=== PATIENT | male | born 1955 | race Caucasian/White ===

== ENCOUNTER 2017-11-08 19:33 | Emergency (ER) | payer MEDICARE ==
[~2017-11-08] VITALS: Ht 177.8 cm; Wt 113.4 kg
[~2017-11-08 19:33] MED LIST: ACEDIPPM; ACIDOPHILUS; ALBU90OI6; ASPI325; ATOR20 PO; CLIN300 PO; Ceftriaxone2 G1 IV; ERGO50000 PO; FLAX; FURO80 PO; GABA600 PO; GLUC500 PO; Gabapentin600 MG PO; HYDACE10B PO; HYDR-86; HYDR1TAB94 PO; INSUASPI; INSULANI; INSULANPEN SC; INSULIN PUMP; LACT10SY PO; LAVAP17G PO; LEVFLO500 PO; LISHYD2012; LISI5 PO; Lisinopril2.5 MG; METF500; METO25ER PO; METO50 PO; MULVIT PO; NAPR500 PO; NEBI5 PO; Novolog100 UNIT/1; OXYACE5T PO; POTA10T PO; POTCHL10ER PO; PROM25 PO; ROSU10TA; RXCLIN PO; SACC250C PO; TIOT18; TYLENOL COLD M PO; [UNRECOGNIZED DRUG - OTHER]
[2017-11-08 20:13] LABS: BASOPHILS ABSOLUTE AUTO 0.03 K/mm3 (0.00-0.23); BASOPHILS PERCENT AUTO 0 % (0-2); EOSINOPHILS ABSOLUTE AUTO 0.01 K/mm3 (0.00-0.68); EOSINOPHILS PERCENT AUTO 0 % (0-6); Hematocrit 35.1 % (37.0-53.0); Hemoglobin 11.6 g/dL (13.5-17.5); IMMATURE GRAN ABSOLUTE AUTO 0.04 K/mm3 (0.00-0.10); IMMATURE GRAN PERCENT AUTO 0 % (0-1); LYMPHOCYTES ABSOLUTE AUTO 0.47 K/mm3 (0.84-5.20); LYMPHOCYTES PERCENT AUTO 4 % (21-46); MONOCYTES ABSOLUTE AUTO 1.25 K/mm3 (0.16-1.47); MONOCYTES PERCENT AUTO 10 % (4-13); Mean Corpuscular HGB 31.3 pg (26.0-34.0); Mean Corpuscular Volume 95 fL (80-100); Mean Platelet Volume 11.1 fL (9.1-12.4); NEUTROPHILS ABSOLUTE AUTO 10.53 K/mm3 (1.96-9.15); NEUTROPHILS PERCENT AUTO 86 % (41-73); Platelet Count 253 K/mm3 (150-400); RDW Coefficient Variation 12.3 % (11.7-14.2); RDW Standard Deviation 42.9 fL (35.1-46.3); Red Blood Cell Count 3.71 M/mm3 (4.30-5.90); White Blood Cell Count 12.33 K/mm3 (4.00-11.30)
[2017-11-08 20:35] LABS: Alanine Aminotransfer (ALT/SGP 27 U/L (12-78); Albumin, Blood 3.4 g/dL (3.4-5.0); Albumin/Globulin Ratio 0.8 (0.8-1.8); Alk Phos 75 U/L (50-136); Anion Gap 10 mmol/L (6-16); Aspartate Aminotrans (AST/SGOT 28 U/L (12-37); Bilirubin, Total 0.5 mg/dL (0.1-1.0); Blood Urea Nitrogen 16 mg/dL (8-24); Bun/Creatinine Ratio 13.1 (12.0-20.0); CO2, Blood 24 mmol/L (21-32); Calcium, Blood 8.5 mg/dL (8.5-10.1); Chloride, Blood 102 mmol/L (98-108); Creatinine, Blood 1.22 mg/dL (0.60-1.20); Globulin, Blood 4.3 g/dL (2.2-4.0); Glomerular Filtration Rate >60 (60-); Glucose, Blood 206 mg/dL (70-99); Potassium, Blood 3.7 mmol/L (3.5-5.5); Sodium, Blood 136 mmol/L (136-145); Total Protein, Blood 7.7 g/dL (6.4-8.2)
[2017-11-08] MEDS ORDERED: LOSARTAN POTAS100 MG PO (20:46)
[2017-11-08] MEDS ORDERED: METO25ER PO (20:46)
[2017-11-08] MEDS ORDERED: ATOR80 PO (20:46)
[2017-11-08] MEDS ORDERED: Isosorbide Mono30 MG PO (20:47)
[2017-11-08] MEDS ORDERED: SPIR25 PO (20:47)
[2017-11-08] MEDS ORDERED: POTCHL20ER PO (20:47)
[2017-11-08] MEDS ORDERED: FLONASE ALLERG9.9 ML INH (20:48)
[2017-11-08] MEDS ORDERED: PANT40 PO (20:48)
[2017-11-08] MEDS ORDERED: Multivitamin1 EAC2 PO (20:48)
[2017-11-08] MEDS ORDERED: INSU100I6 SC (20:49)
[2017-11-08] MEDS ORDERED: CLOP75 PO (20:50)
[2017-11-08] MEDS ORDERED: GABA600 PO (20:52)
[2017-11-08] MEDS ORDERED: FURO40 PO (20:53)
[2017-11-08 22:37] LABS: Influenza A Negative (NEGATIVE); Influenza B Negative (NEGATIVE)
[2017-11-09 00:04] LABS: Source, Urine Clean Catch
[2017-11-09 00:07] LABS: Bilirubin, Urine Neg (Neg); Blood, Urine 3+ (Neg); Glucose Qualitative, Urine 2+ (Neg); Ketones, Urine Neg (Neg); Leukocyte Esterase, Urine 2+ (Neg); Nitrite, Urine Neg (Neg); Protein, Urine 3+ (Neg); Specific Gravity, Urine 1.015 (1.003-1.022); Urobilinogen, Urine 2+ (Normal)
[2017-11-09 00:13] LABS: Appearance, Urine Hazy (Clear); Bacteria Many /hpf; Color, Urine Yellow (P-Yellow); Red Blood Cells, Urine Rare /hpf (0-2); Squamous Epithelial Cells Rare /hpf (Few); White Blood Cells, Urine TNTC /hpf (0-5)
[2017-11-09] MEDS ORDERED: Cipro500 MG PO (00:25)
== END 2017-11-09 00:46 | disposition home or self-care (01) ==
LOC: ER 19:33
PROVIDERS: Emergency Medicine
DX: N39.0 Urinary tract infection, site not specified (principal); Z88.5 Allergy status to narcotic agent; Z88.8 Allergy status to other drugs, medicaments and biological substances; Z79.899 Other long term (current) drug therapy; Z79.4 Long term (current) use of insulin; E11.9 Type 2 diabetes mellitus without complications; I25.2 Old myocardial infarction; Z87.891 Personal history of nicotine dependence; Z85.51 Personal history of malignant neoplasm of bladder
CPT/HCPCS: 36415; 71046; 80053; 81001; 83690; 85025; 87077; 87086; 87186; 87804; 93005; 93010; 96361; 96365; 96375; 99283; J0696; J2405; J7030

== ENCOUNTER 2017-11-27 17:46 | Emergency (ER) | payer MEDICARE ==
[~2017-11-27] VITALS: Ht 177.8 cm; Wt 112.5 kg
[~2017-11-27 17:46] MED LIST changes: +ATOR80 PO; +CLOP75 PO; +Cipro500 MG PO; +FLONASE ALLERG9.9 ML INH; +FURO40 PO; +INSU100I6 SC; +Isosorbide Mono30 MG PO; +LOSARTAN POTAS100 MG PO; +Multivitamin1 EAC2 PO; +PANT40 PO; +POTCHL20ER PO; +SPIR25 PO
[2017-11-27 18:41] LABS: Mean Corpuscular HGB Conc 33.1 g/dL (31.5-36.5); RDW Coefficient Variation 12.6 % (11.7-14.2)
[2017-11-27 18:59] LABS: Alanine Aminotransfer (ALT/SGP 22 U/L (12-78); Albumin, Blood 3.9 g/dL (3.4-5.0); Alk Phos 101 U/L (50-136); Anion Gap 12 mmol/L (6-16); Aspartate Aminotrans (AST/SGOT 11 U/L (12-37); Blood Urea Nitrogen 19 mg/dL (8-24); Bun/Creatinine Ratio 20.2 (12.0-20.0); CO2, Blood 20 mmol/L (21-32); Calcium, Blood 9.3 mg/dL (8.5-10.1); Chloride, Blood 98 mmol/L (98-108); Creatinine, Blood 0.94 mg/dL (0.60-1.20); Glomerular Filtration Rate >60 (60-); Glucose, Blood 461 mg/dL (70-99); Potassium, Blood 4.4 mmol/L (3.5-5.5); Sodium, Blood 130 mmol/L (136-145); Total Protein, Blood 7.9 g/dL (6.4-8.2)
[2017-11-27 19:19] LABS: BASOPHILS ABSOLUTE AUTO 0.05 K/mm3 (0.00-0.23); BASOPHILS PERCENT AUTO 0 % (0-2); EOSINOPHILS ABSOLUTE AUTO 0.06 K/mm3 (0.00-0.68); EOSINOPHILS PERCENT AUTO 0 % (0-6); Hematocrit 38.1 % (37.0-53.0); Hemoglobin 12.6 g/dL (13.5-17.5); IMMATURE GRAN ABSOLUTE AUTO 0.08 K/mm3 (0.00-0.10); IMMATURE GRAN PERCENT AUTO 1 % (0-1); LYMPHOCYTES PERCENT AUTO 6 % (21-46); MONOCYTES ABSOLUTE AUTO 1.47 K/mm3 (0.16-1.47); MONOCYTES PERCENT AUTO 9 % (4-13); Mean Corpuscular HGB 30.7 pg (26.0-34.0); Mean Corpuscular Volume 93 fL (80-100); Mean Platelet Volume 11.4 fL (9.1-12.4); NEUTROPHILS PERCENT AUTO 84 % (41-73); Platelet Count 292 K/mm3 (150-400); RDW Standard Deviation 43.1 fL (35.1-46.3); Red Blood Cell Count 4.11 M/mm3 (4.30-5.90); White Blood Cell Count 16.36 K/mm3 (4.00-11.30)
[2017-11-27 20:29] LABS: Source, Urine Clean Catch
[2017-11-27 20:34] LABS: Bilirubin, Urine Neg (Neg); Blood, Urine 3+ (Neg); Glucose Qualitative, Urine 4+ (Neg); Ketones, Urine 3+ (Neg); Leukocyte Esterase, Urine 1+ (Neg); Nitrite, Urine Neg (Neg); Protein, Urine 2+ (Neg); Urobilinogen, Urine NORM (Normal)
[2017-11-27 20:35] LABS: Appearance, Urine Clear (Clear); Color, Urine Yellow (P-Yellow)
[2017-11-27 20:41] LABS: Bacteria Rare /hpf; Squamous Epithelial Cells Not Seen /hpf (Few); White Blood Cells, Urine 50-100 /hpf (0-5)
[2017-11-27] MEDS ORDERED: CEPH500 PO (20:58)
[2017-11-27] MEDS ORDERED: Levaquin750 MG PO (21:05)
== END 2017-11-27 21:17 | disposition home or self-care (01) ==
LOC: ER 17:46
PROVIDERS: Emergency Medicine
DX: N39.0 Urinary tract infection, site not specified (principal); E11.9 Type 2 diabetes mellitus without complications; I25.2 Old myocardial infarction; Z88.5 Allergy status to narcotic agent; Z91.09 Other allergy status, other than to drugs and biological substances; Z88.8 Allergy status to other drugs, medicaments and biological substances; Z79.899 Other long term (current) drug therapy; Z79.4 Long term (current) use of insulin; Z87.891 Personal history of nicotine dependence; Z96.41 Presence of insulin pump (external) (internal)
CPT/HCPCS: 36415; 80053; 81001; 82947; 83605; 83690; 85025; 87040; 87077; 87086; 87186; 93005; 93010; 96365; 99283; J0696; J7030

== ENCOUNTER 2018-12-05 15:01 | Inpatient (IN) | payer MEDICARE, OTHER ==
[~2018-12-05] VITALS: Ht 177.8 cm; Wt 105.6 kg
[~2018-12-05 15:01] MED LIST changes: +ATOR40TA PO; -ATOR80 PO; +CEPH500 PO; -INSU100I6 SC; +Levaquin750 MG PO; +Lopressor 25 mg25 MG PO
[2018-12-05 15:38] LABS: BASOPHILS ABSOLUTE AUTO 0.05 K/mm3 (0.00-0.23); BASOPHILS PERCENT AUTO 0 % (0-2); EOSINOPHILS ABSOLUTE AUTO 0.28 K/mm3 (0.00-0.68); EOSINOPHILS PERCENT AUTO 2 % (0-6); Hemoglobin 12.9 g/dL (13.5-17.5); IMMATURE GRAN ABSOLUTE AUTO 0.05 K/mm3 (0.00-0.10); IMMATURE GRAN PERCENT AUTO 0 % (0-1); LYMPHOCYTES ABSOLUTE AUTO 1.49 K/mm3 (0.84-5.20); LYMPHOCYTES PERCENT AUTO 12 % (21-46); MONOCYTES ABSOLUTE AUTO 1.06 K/mm3 (0.16-1.47); MONOCYTES PERCENT AUTO 8 % (4-13); Mean Corpuscular HGB 30.2 pg (26.0-34.0); Mean Corpuscular HGB Conc 32.3 g/dL (31.5-36.5); Mean Corpuscular Volume 94 fL (80-100); Mean Platelet Volume 10.8 fL (9.1-12.4); NEUTROPHILS PERCENT AUTO 77 % (41-73); Platelet Count 319 K/mm3 (150-400); RDW Coefficient Variation 12.9 % (11.7-14.2); Red Blood Cell Count 4.27 M/mm3 (4.30-5.90); White Blood Cell Count 12.73 K/mm3 (4.00-11.30)
[2018-12-05 15:57] LABS: Alanine Aminotransfer (ALT/SGP 20 U/L (12-78); Albumin, Blood 3.1 g/dL (3.4-5.0); Albumin/Globulin Ratio 0.6 (0.8-1.8); Alk Phos 125 U/L (50-136); Anion Gap 5 mmol/L (6-16); Aspartate Aminotrans (AST/SGOT 20 U/L (12-37); Bilirubin, Total 0.4 mg/dL (0.1-1.0); Blood Urea Nitrogen 14 mg/dL (8-24); Bun/Creatinine Ratio 13.2 (12.0-20.0); CO2, Blood 28 mmol/L (21-32); Calcium, Blood 8.5 mg/dL (8.5-10.1); Chloride, Blood 103 mmol/L (98-108); Creatinine, Blood 1.06 mg/dL (0.60-1.20); Globulin, Blood 4.8 g/dL (2.2-4.0); Glomerular Filtration Rate >60 (60-); Glucose, Blood 345 mg/dL (70-99); Potassium, Blood 4.3 mmol/L (3.5-5.5); Sodium, Blood 136 mmol/L (136-145); Total Protein, Blood 7.9 g/dL (6.4-8.2)
[2018-12-05] MEDS ORDERED: Aspirin EC81 MG PO (17:05)
[2018-12-05] MEDS ORDERED: METF500C PO (17:06)
[2018-12-05] MEDS ORDERED: ACETAMINOPHEN500 MG PO (17:07)
[2018-12-05] MEDS ORDERED: GABA600 PO (17:07)
[2018-12-05] MEDS ORDERED: CRANBERRY PO (17:08)
[2018-12-05] MEDS ORDERED: Humalog100 UNIT/1 SC (17:17)
--- NOTE | 2018-12-05 17:50 | NUR ---
PT HERE FROM ER VIA [facility]. PT TO BED BY SELF. PT DENIES PAIN. PT HERE FOR DIABETIC FOOT INFECTION. PT REPORTS MAY TAKE PHOTOS. PT ASSISTED WITH ADL'S. PT SHOWN CALL LIGHT. FAMILY PRESENT BUT PLANS TO LEAVE AND COME BACK AT LATER TIME.
--- NOTE | 2018-12-05 18:48 | NUR ---
DR CURIEL CALLED TO CLARIFY IF CONSULT WAS CALLED, REPORTS PT MAY EAT TONIGHT AND TO HAVE PT BE NPO AFTER MIDNIGHT. WILL PLACE ORDER AND REPORT TO HS RN. TELE BEING PLACED BY OTHER RN.
--- NOTE | 2018-12-05 19:00 | NUR ---
PHOTOS BEEN TAKEN, KRISTINE RN GIVEN REPORT. SEE PHOTOS.
[2018-12-05] MEDS ORDERED: ACETAMINOPHEN-1 EACH PO (22:15)
[2018-12-06 05:04] LABS: Hematocrit 37.7 % (37.0-53.0); Mean Corpuscular HGB 30.2 pg (26.0-34.0); Mean Corpuscular HGB Conc 31.8 g/dL (31.5-36.5); Mean Corpuscular Volume 95 fL (80-100); Mean Platelet Volume 10.9 fL (9.1-12.4); Platelet Count 312 K/mm3 (150-400); RDW Coefficient Variation 12.8 % (11.7-14.2); RDW Standard Deviation 44.5 fL (35.1-46.3); Red Blood Cell Count 3.97 M/mm3 (4.30-5.90); White Blood Cell Count 11.74 K/mm3 (4.00-11.30)
[2018-12-06 05:14] LABS: International Normalized Ratio 1.01; Prothrombin Time Results 10.7 Sec (9.7-11.5)
[2018-12-06 05:25] LABS: Alanine Aminotransfer (ALT/SGP 19 U/L (12-78); Albumin, Blood 2.8 g/dL (3.4-5.0); Albumin/Globulin Ratio 0.7 (0.8-1.8); Alk Phos 111 U/L (50-136); Anion Gap 5 mmol/L (6-16); Aspartate Aminotrans (AST/SGOT 10 U/L (12-37); Bilirubin, Total 0.4 mg/dL (0.1-1.0); Blood Urea Nitrogen 15 mg/dL (8-24); Bun/Creatinine Ratio 15.4 (12.0-20.0); CO2, Blood 26 mmol/L (21-32); Calcium, Blood 8.3 mg/dL (8.5-10.1); Chloride, Blood 107 mmol/L (98-108); Creatinine, Blood 0.97 mg/dL (0.60-1.20); Globulin, Blood 4.3 g/dL (2.2-4.0); Glomerular Filtration Rate >60 (60-); Glucose, Blood 191 mg/dL (70-99); Magnesium, Blood 2.3 mg/dL (1.6-2.4); Sodium, Blood 138 mmol/L (136-145); Total Protein, Blood 7.1 g/dL (6.4-8.2)
--- NOTE | 2018-12-06 06:36 | NUR ---
LYING IN SEMI FOWLERS WITH EYES CLOSED. MEDICATED X1 FOR PAIN. REPOSITIONS SELF FOR COMFORT. DENIES FURTHER NEEDS AT THIS TIME. SAFETY MEASURES IN PLACE. WILL GIVE HAND OFF TO ONCOMING SHIFT USING SBAR,
--- NOTE | 2018-12-06 06:39 | NUR ---
LYING IN SEMI FOWLERS WITH EYES OPEN. REPOSITIONS SELF FOR COMFORT. DENIES FURTHER NEEDS AT THIS TIME. SAFETY MEASURES IN PLACE. WILL GIVE HAND OFF TO ONCOMING SHIFT USING SBAR,
--- NOTE | 2018-12-06 10:06 | NUR ---
TO DAY SURGERY PER CART
--- NOTE | 2018-12-06 10:37 | NUR ---
PATIENT GAVE PERMISSION FOR ME TO CARE FOR HIM TODAY 12/06/18. History, Chart, Medications and Allergies reviewed before start of procedure.Patient confirms NPO status and agrees with scheduled surgery.
--- NOTE | 2018-12-06 10:40 | NUR ---
PATIENT HAS HOME INSULIN PUMP IN PLACE.
--- NOTE | 2018-12-06 10:46 | NUR ---
STUDENT ASSISTING ASSISTING IN PREOPERATIVE CARE. AGREE WITH HER CHARTING AND CARE
--- NOTE | 2018-12-06 12:33 | NUR ---
post op returned to room post op. right foot with gauze dressing covered by glenna wrap clean, dry and intact. wound vac in place with scant sanguinous drainage. patient denies any pain or nausea. patient states no feeling to surgical area due to neuropathy
--- NOTE | 2018-12-06 12:58 | NUR ---
WOUND VAC MESSAGE LEFT ON VOCERA FOR JENNA SUTTON RN, OIL DEVELOPER THAT PATIENT HAS WOUND VAC IN PLACE AND WILL NEED WOUND VAC FOR DISCHARGE
--- NOTE | 2018-12-06 18:33 | NUR ---
summary patient denies pain or discomfort. right foot dressing dry and intact, wound vac in place with scant sanguinous drainage. patient has home insulin pump in place and has not required sliding scale coverage. notified by [facility] clinical research monitor that patient had an increase in pvc's post op but that pvc's have now decreased-will pass this information to oncoming shift. patient denies chest pain, sob and does not feel irregular heart beats. spoke with Gamaliel Barrera RN regarding need for home wound vac.
[2018-12-07 03:10] LABS: Adenovirus Not Detected (NOT DETECT); Bordetella pertussis Not Detected (NOT DETECT); Chlamydophila pneumoniae Not Detected (NOT DETECT); Coronavirus 229E Not Detected (NOT DETECT); Coronavirus HKU1 Not Detected (NOT DETECT); Coronavirus NL63 Not Detected (NOT DETECT); Coronavirus OC43 Not Detected (NOT DETECT); Human Metapneumovirus Not Detected (NOT DETECT); Human Rhinovirus/Enterovirus Not Detected (NOT DETECT); Influenza A Not Detected (NOT DETECT); Influenza A/2009-H1 Not Detected (NOT DETECT); Influenza A/H1 Not Detected (NOT DETECT); Influenza A/H3 Not Detected (NOT DETECT); Influenza B Not Detected (NOT DETECT); Parainfluenza Virus 1 Not Detected (NOT DETECT); Parainfluenza Virus 2 Not Detected (NOT DETECT); Parainfluenza Virus 3 Not Detected (NOT DETECT); Parainfluenza Virus 4 Not Detected (NOT DETECT); Respiratory Syncytial Virus Not Detected (NOT DETECT)
[2018-12-07 03:11] LABS: Mycoplasma pneumoniae Not Detected (NOT DETECT)
[2018-12-07 05:02] LABS: Anion Gap 4 mmol/L (6-16); Blood Urea Nitrogen 11 mg/dL (8-24); CO2, Blood 26 mmol/L (21-32); Calcium, Blood 8.3 mg/dL (8.5-10.1); Chloride, Blood 110 mmol/L (98-108); Creatinine, Blood 0.92 mg/dL (0.60-1.20); Glomerular Filtration Rate >60 (60-); Glucose, Blood 139 mg/dL (70-99); Magnesium, Blood 2.4 mg/dL (1.6-2.4); Potassium, Blood 4.1 mmol/L (3.5-5.5); Sodium, Blood 140 mmol/L (136-145)
--- NOTE | 2018-12-07 06:09 | NUR ---
SUMMARY PT WITH PVCS POSTOP. I RECEIVED CALL REPORTING THEY WERE 17-18 PER MINUTE PT RESTING NO REPORTED SYMPTOMS. VS SATISF. I CALLED DR TURCIOS AND REPORTED PVCS PT RECEIVING METOPROLOL PO PER ORDERS. NO CHANGE TO ORDERS AND METOPROLOL WAS GIVEN. LABS WERE ALSO ORDERED FOR AM. THIS AM CREOSOTING ENGINEER REPORTED PT NOW HAVING BIGEMINY.PT CONTINUES ALERT TALKATIVE NO SYMPTOMS.O2 SATS HAVE CONTINUED 97% ON R/A.PT REPORTS WAS ON DIURETICS APPROX 1 YR AGO PRN LEG SWELLING, BUT STATES TOOK HIMSELF OFF OF THEM. I/O UNBALANCED INTAKE GREATER. I CALLED DR LOPEZ AND ADVISED OF ABOVE. DISCUSSED AM LABS,I/O,VS SHE WISHES NO CHANGE OF ORDERS AT THIS TIME. CONTINUE TELE MONITORING AND DAY HOSPITALIST WILL FOLLOW UP.PT CONT ON HIS INSULIN PUMP PER ORDERS/OK OF DR TURCIOS WITH AM BLOOD GLUCOSE 139.
--- NOTE | 2018-12-07 16:38 | NUR ---
pt out of room
--- NOTE | 2018-12-07 17:12 | NUR ---
INSULIN PUMP PT USING INSULIN PUMP. AT BREAKFAST, GAVE SELF 3.6 UNITS. AT LUNCH, GAVE SELF 4.4 UNITS VIA PUMP.
--- NOTE | 2018-12-07 17:14 | NUR ---
SUMMARY NO ACUTE CHANGES T/O SHIFT. PT DENIES PAIN. WOUND VAC TO RLE. USING INSULIN PUMP TO ADMINISTER OWN INSULIN. USES CALL LIGHT APPROPRIATELY.
--- NOTE | 2018-12-08 07:16 | NUR ---
SUMMARY PT RESTED TONIGHT WITHOUT COMPLAINT. DAUGHTER AT BEDSIDE.
--- NOTE | 2018-12-08 17:38 | NUR ---
SUMMARY PT HAVING INTERMITTENT PVCS AND BIGEMINY. ASYMPTOMATIC. NOTIFIED DR LIMON. NO NEW ORDERS AT THIS TIME. PT HAS DENIED PAIN T/O SHIFT. USES CALL LIGHT APPROPRIATELY.
[2018-12-09 04:26] LABS: BASOPHILS ABSOLUTE AUTO 0.07 K/mm3 (0.00-0.23); BASOPHILS PERCENT AUTO 1 % (0-2); EOSINOPHILS ABSOLUTE AUTO 0.38 K/mm3 (0.00-0.68); EOSINOPHILS PERCENT AUTO 5 % (0-6); Hematocrit 35.9 % (37.0-53.0); Hemoglobin 11.2 g/dL (13.5-17.5); IMMATURE GRAN ABSOLUTE AUTO 0.03 K/mm3 (0.00-0.10); IMMATURE GRAN PERCENT AUTO 0 % (0-1); LYMPHOCYTES ABSOLUTE AUTO 1.68 K/mm3 (0.84-5.20); LYMPHOCYTES PERCENT AUTO 21 % (21-46); MONOCYTES ABSOLUTE AUTO 0.62 K/mm3 (0.16-1.47); MONOCYTES PERCENT AUTO 8 % (4-13); Mean Corpuscular HGB 29.7 pg (26.0-34.0); Mean Corpuscular HGB Conc 31.2 g/dL (31.5-36.5); Mean Corpuscular Volume 95 fL (80-100); Mean Platelet Volume 10.4 fL (9.1-12.4); NEUTROPHILS ABSOLUTE AUTO 5.36 K/mm3 (1.96-9.15); NEUTROPHILS PERCENT AUTO 66 % (41-73); Platelet Count 315 K/mm3 (150-400); RDW Coefficient Variation 12.8 % (11.7-14.2); RDW Standard Deviation 45.5 fL (35.1-46.3); Red Blood Cell Count 3.77 M/mm3 (4.30-5.90); White Blood Cell Count 8.14 K/mm3 (4.00-11.30)
[2018-12-09 04:49] LABS: Alanine Aminotransfer (ALT/SGP 13 U/L (12-78); Albumin, Blood 2.7 g/dL (3.4-5.0); Albumin/Globulin Ratio 0.7 (0.8-1.8); Alk Phos 90 U/L (50-136); Anion Gap 5 mmol/L (6-16); Aspartate Aminotrans (AST/SGOT 8 U/L (12-37); Bilirubin, Total 0.3 mg/dL (0.1-1.0); Blood Urea Nitrogen 18 mg/dL (8-24); Bun/Creatinine Ratio 15.1 (12.0-20.0); CO2, Blood 26 mmol/L (21-32); Calcium, Blood 8.7 mg/dL (8.5-10.1); Chloride, Blood 109 mmol/L (98-108); Creatinine, Blood 1.19 mg/dL (0.60-1.20); Globulin, Blood 4.1 g/dL (2.2-4.0); Glomerular Filtration Rate >60 (60-); Glucose, Blood 201 mg/dL (70-99); Potassium, Blood 4.2 mmol/L (3.5-5.5); Sodium, Blood 140 mmol/L (136-145); Total Protein, Blood 6.8 g/dL (6.4-8.2)
--- NOTE | 2018-12-09 06:03 | NUR ---
SHIFT SUMMARY PT IS POD 3 RIGHT 5TH TOE AMPUTATION. WOUND VAC IN PLACE. PT IS MAINTAINING NWB STATUS W/ FWW FOR AMBULATION. PT IS A&O, ABLE TO MAKE NEEDS KNOWN. PT TO WORK WITH PT/OT. TELE WAS SINUS IN THE 80S WITH BIGEMINY AND TRIGEMINY PVCS AT TIME OF ASSESSMENT. WILL CTM UNTIL PASS TO NEXT SHIFT.
--- NOTE | 2018-12-09 12:20 | NUR ---
DR NUNEZHOP HERE AND CHANGED DRESSING, RN ABLE TO TAKE PICTURE. PLACED NEW DRESSING. DISCUSSED DISCHARGE. REPORTS FILLING OUT PAPERWORK THIS AM AND REPORTS OK FOR DISCHARGE WHEN ARRANGEMENTS HAVE BEEN MADE, TURBINE INSPECTOR IN TO SEE PT THIS AM.
--- NOTE | 2018-12-09 13:25 | NUR ---
RECENTLY DISCUSSED PT'S DISCHARGE WITH CASE MANAGEMENT WHO REPORTED TO CONT TO WAIT ON AUTHORIZATION.
--- NOTE | 2018-12-09 18:00 | NUR ---
DR LIMON NOTIFIED OF PT RIDE WOULD NOT BE ABLE TO BE HERE UNTIL DARK OR LATER, PT REPORTS HAVING NO SIDEWALKS AT HOME. DISCUSSED PT HAVING HELP GETTING IN TO HOUSE, PT REPORTED WOULD BE ABLE TO STAY TONIGHT TO BE ABLE TO SEE BETTER DURING DAYLIGHT HOURS. DR LIMON NOTIFIED, AGREES PT SHOULD NOT GO HOME TONIGHT RELATED TO PT SAFELY GETTING IN TO HOUSE. CASE MANAGEMENT WORKING T/O DAY WITH PT'S DISCHARGE. PT REPORTS FAMILY LIVING APPROX 1.5 HOURS AWAY. PT REPORTS WILL OBTAIN WALKER TOMMORROW WELL.
--- NOTE | 2018-12-09 18:43 | NUR ---
SHIFT SUMMARY PT EATING AND DRINKING. PT BEEN ASSISTED WITH ADL'S PRN. DR CURIEL HERE AND CHANGED WOUND VAC DRESSING TODAY. CASE MANAGEMENT MANAGEMENT IN/OUT OF ROOM MULT TIMES TODAY. ARRANGE DISCHARGE LATE THIS EVENING, PT NOT COMF TO GO HOME TONIGHT AND GETTING HOME IN DARK. DR LIMON NOTIFIED, AGREES PT TO STAY TONIGHT. PT VOIDING.
--- NOTE | 2018-12-10 05:42 | NUR ---
SUMMARY NO ACUTE CHANGES NOTED THROUGH THE NIGHT. DRSG REMAINS C/D/I, VSS. CALL LIGHT IN REACH
--- NOTE | 2018-12-10 07:43 | NUR ---
BLOOD SUGAR PT USES HOME METER TO CHECK. BS 90. PT DECLINES HOSPITAL CHEM BG CHECK SINCE HE DID HOS OWN.
[2018-12-10] MEDS ORDERED: AMOX875 PO (10:57)
--- NOTE | 2018-12-10 13:20 | NUR ---
DISCHARGE SUMMARY PT CLEARED THERAPY, DENIES PAIN, VOIDING WELL, FIRST VAC APPOINTMENTS MADE FOR VAC CHANGES AT DR BLANCO AND WOUND CLINIC. ABX CALLED TO PHARMACY OF CHOICE, DAUGHTER AND PATIENT UNDERSTAND IMPORTANCE.
== END 2018-12-10 13:20 | disposition home or self-care (01) | DRG 854 ==
LOC: ER 15:01 → SURS 16:45
PROVIDERS: Internal Medicine; Nurse Practitioner Acute Care; Physician Assistant; Podiatrist Foot & Ankle Surgery; ADMIT Internal Medicine
PROC: 0Y6X0Z0 Detachment at Right 5th Toe, Complete, Open Approach (ICD-10-PCS; principal; 2018-12-06 10:30)
DX: A41.9 Sepsis, unspecified organism (principal); E11.52 Type 2 diabetes mellitus with diabetic peripheral angiopathy with gangrene; I96 Gangrene, not elsewhere classified; E11.42 Type 2 diabetes mellitus with diabetic polyneuropathy; G47.33 Obstructive sleep apnea (adult) (pediatric); I25.2 Old myocardial infarction; E11.621 Type 2 diabetes mellitus with foot ulcer; E11.65 Type 2 diabetes mellitus with hyperglycemia; I10 Essential (primary) hypertension; Z95.5 Presence of coronary angioplasty implant and graft; Z79.82 Long term (current) use of aspirin; I25.10 Atherosclerotic heart disease of native coronary artery without angina pectoris; Z85.51 Personal history of malignant neoplasm of bladder; Z98.52 Vasectomy status; Z96.41 Presence of insulin pump (external) (internal); L97.514 Non-pressure chronic ulcer of other part of right foot with necrosis of bone; G47.00 Insomnia, unspecified; Z79.4 Long term (current) use of insulin
CPT/HCPCS: 36415; 73630; 80048; 80053; 82947; 83735; 84443; 85025; 85027; 85610; 87040; 87070; 87077; 87147; 87186; 87205; 87486; 87581; 87633; 87798; 88305; 88311; 93005; 93010; 94762; 96365; 97110; 97116; 97161; 97530; 99285-25; J2250; J2370; J2405; J2543; J2704; J3010; J3370; J3480; J7050; J7120

== ENCOUNTER 2018-12-16 07:50 | Day surgery (SDC) | payer MEDICARE, OTHER ==
[~2018-12-16 07:50] MED LIST changes: +ACETAMINOPHEN-1 EACH PO; +ACETAMINOPHEN500 MG PO; +AMOX875 PO; +Aspirin EC81 MG PO; +CRANBERRY PO; +Humalog100 UNIT/1 SC; +METF500C PO
== END 2018-12-16 22:43 | disposition home or self-care (01) ==
LOC: WOUND 07:50
DX: T81.89XA Other complications of procedures, not elsewhere classified, initial encounter (principal); E11.621 Type 2 diabetes mellitus with foot ulcer; L97.512 Non-pressure chronic ulcer of other part of right foot with fat layer exposed; E11.42 Type 2 diabetes mellitus with diabetic polyneuropathy; E11.52 Type 2 diabetes mellitus with diabetic peripheral angiopathy with gangrene; A48.0 Gas gangrene; E11.40 Type 2 diabetes mellitus with diabetic neuropathy, unspecified; I13.2 Hypertensive heart and chronic kidney disease with heart failure and with stage 5 chronic kidney disease, or end stage renal disease; E11.22 Type 2 diabetes mellitus with diabetic chronic kidney disease; I50.9 Heart failure, unspecified; N18.6 End stage renal disease; I25.2 Old myocardial infarction; I73.9 Peripheral vascular disease, unspecified; G47.33 Obstructive sleep apnea (adult) (pediatric); Z89.421 Acquired absence of other right toe(s); Z88.5 Allergy status to narcotic agent; Z91.041 Radiographic dye allergy status; Z87.891 Personal history of nicotine dependence
CPT/HCPCS: G0463

== ENCOUNTER 2018-12-18 11:03 | Day surgery (SDC) | payer MEDICARE | END 2018-12-18 22:38 | disposition home or self-care (01) | LOC: WOUND 11:03 | DX: T81.89XA Other complications of procedures, not elsewhere classified, initial encounter (principal); E10.621 Type 1 diabetes mellitus with foot ulcer; L97.515 Non-pressure chronic ulcer of other part of right foot with muscle involvement without evidence of necrosis; E10.622 Type 1 diabetes mellitus with other skin ulcer; L97.829 Non-pressure chronic ulcer of other part of left lower leg with unspecified severity; E10.36 Type 1 diabetes mellitus with diabetic cataract; G47.30 Sleep apnea, unspecified; I25.2 Old myocardial infarction; E10.22 Type 1 diabetes mellitus with diabetic chronic kidney disease; I13.2 Hypertensive heart and chronic kidney disease with heart failure and with stage 5 chronic kidney disease, or end stage renal disease; I50.9 Heart failure, unspecified; N18.3 Chronic kidney disease, stage 3 (moderate); M06.9 Rheumatoid arthritis, unspecified; E10.42 Type 1 diabetes mellitus with diabetic polyneuropathy; M19.90 Unspecified osteoarthritis, unspecified site ==

== ENCOUNTER 2018-12-20 11:15 | Day surgery (SDC) | payer MEDICARE | END 2018-12-20 22:39 | disposition home or self-care (01) | LOC: WOUND 11:15 | DX: T81.89XA Other complications of procedures, not elsewhere classified, initial encounter (principal); E10.621 Type 1 diabetes mellitus with foot ulcer; L97.513 Non-pressure chronic ulcer of other part of right foot with necrosis of muscle; L97.519 Non-pressure chronic ulcer of other part of right foot with unspecified severity; E10.42 Type 1 diabetes mellitus with diabetic polyneuropathy; E10.52 Type 1 diabetes mellitus with diabetic peripheral angiopathy with gangrene; A48.0 Gas gangrene; I13.2 Hypertensive heart and chronic kidney disease with heart failure and with stage 5 chronic kidney disease, or end stage renal disease; E10.22 Type 1 diabetes mellitus with diabetic chronic kidney disease; I50.9 Heart failure, unspecified; N18.6 End stage renal disease; I25.2 Old myocardial infarction; I25.10 Atherosclerotic heart disease of native coronary artery without angina pectoris; I73.9 Peripheral vascular disease, unspecified; G47.33 Obstructive sleep apnea (adult) (pediatric); Z89.421 Acquired absence of other right toe(s) ==

== ENCOUNTER 2018-12-27 10:55 | Day surgery (SDC) | payer MEDICARE | END 2018-12-28 00:40 | disposition home or self-care (01) | LOC: WOUND 10:55 | DX: T87.89 Other complications of amputation stump (principal); E11.621 Type 2 diabetes mellitus with foot ulcer; L97.516 Non-pressure chronic ulcer of other part of right foot with bone involvement without evidence of necrosis; E11.622 Type 2 diabetes mellitus with other skin ulcer; L97.829 Non-pressure chronic ulcer of other part of left lower leg with unspecified severity; I25.10 Atherosclerotic heart disease of native coronary artery without angina pectoris; E11.51 Type 2 diabetes mellitus with diabetic peripheral angiopathy without gangrene; E11.42 Type 2 diabetes mellitus with diabetic polyneuropathy; G47.33 Obstructive sleep apnea (adult) (pediatric); E11.22 Type 2 diabetes mellitus with diabetic chronic kidney disease; I13.2 Hypertensive heart and chronic kidney disease with heart failure and with stage 5 chronic kidney disease, or end stage renal disease; I50.9 Heart failure, unspecified; N18.6 End stage renal disease; I25.2 Old myocardial infarction | CPT/HCPCS: 87070; 87075; 87205 ==

== ENCOUNTER 2019-01-02 10:55 | Day surgery (SDC) | payer MEDICARE | END 2019-01-02 22:42 | disposition home or self-care (01) | LOC: WOUND 10:55 | DX: T87.89 Other complications of amputation stump (principal); E11.621 Type 2 diabetes mellitus with foot ulcer; E11.622 Type 2 diabetes mellitus with other skin ulcer; L97.516 Non-pressure chronic ulcer of other part of right foot with bone involvement without evidence of necrosis; L97.519 Non-pressure chronic ulcer of other part of right foot with unspecified severity; L97.829 Non-pressure chronic ulcer of other part of left lower leg with unspecified severity; E11.42 Type 2 diabetes mellitus with diabetic polyneuropathy; E11.40 Type 2 diabetes mellitus with diabetic neuropathy, unspecified; E11.52 Type 2 diabetes mellitus with diabetic peripheral angiopathy with gangrene; A48.0 Gas gangrene; I13.2 Hypertensive heart and chronic kidney disease with heart failure and with stage 5 chronic kidney disease, or end stage renal disease; E11.22 Type 2 diabetes mellitus with diabetic chronic kidney disease; I50.9 Heart failure, unspecified; N18.6 End stage renal disease; I25.2 Old myocardial infarction; I25.10 Atherosclerotic heart disease of native coronary artery without angina pectoris; G47.33 Obstructive sleep apnea (adult) (pediatric); Z89.421 Acquired absence of other right toe(s) | CPT/HCPCS: 87071; 87075; 87077; 87147; 87186; 87205 ==

== ENCOUNTER 2019-01-13 12:01 | Day surgery (SDC) | payer MEDICARE ==
[~2019-01-13] VITALS: Ht 177.8 cm; Wt 109.5 kg
== END 2019-01-13 14:20 | disposition home or self-care (01) ==
LOC: ORSCSDS 12:01
PROVIDERS: Podiatrist Foot & Ankle Surgery
PROC: 0JBQ0ZZ Excision of Right Foot Subcutaneous Tissue and Fascia, Open Approach (ICD-10-PCS; principal; 2019-01-13 12:30)
DX: L03.115 Cellulitis of right lower limb (principal); I25.2 Old myocardial infarction; Z86.73 Personal history of transient ischemic attack (TIA), and cerebral infarction without residual deficits; Z79.4 Long term (current) use of insulin; G47.33 Obstructive sleep apnea (adult) (pediatric); E11.621 Type 2 diabetes mellitus with foot ulcer; E11.42 Type 2 diabetes mellitus with diabetic polyneuropathy; E11.628 Type 2 diabetes mellitus with other skin complications; I10 Essential (primary) hypertension; Z86.79 Personal history of other diseases of the circulatory system; Z79.899 Other long term (current) drug therapy
CPT/HCPCS: 82947; J0690; J1100; J2250; J2370; J2405; J2704; J7120

== ENCOUNTER 2019-07-30 15:40 | Inpatient (IN) | payer MEDICARE ==
[~2019-07-30] VITALS: Ht 177.8 cm; Wt 83.8 kg
[2019-07-30 16:10] LABS: Calcium, Ionized (POC) 1.19 mmol/L (1.10-1.46); Chloride (POC) 107 mmol/L (98-108); Creatinine (POC) 1.8 mg/dL (0.8-1.3); Glucose (ISTAT POC) 682 mg/dL (70-99); Hemoglobin (POC) 14.6 g/dL (13.5-17.5); Potassium (POC) 3.9 mmol/L (3.5-5.5); Sodium (POC) 132 mmol/L (135-148); Total CO2 (POC) 7 mmol/L (21-32)
[2019-07-30 16:15] LABS: BASOPHILS ABSOLUTE AUTO 0.02 K/mm3 (0.00-0.23); BASOPHILS PERCENT AUTO 0 % (0-2); EOSINOPHILS PERCENT AUTO 0 % (0-6); Hematocrit 41.8 % (37.0-53.0); Hemoglobin 14.6 g/dL (13.5-17.5); IMMATURE GRAN ABSOLUTE AUTO 0.09 K/mm3 (0.00-0.10); IMMATURE GRAN PERCENT AUTO 1 % (0-1); LYMPHOCYTES ABSOLUTE AUTO 0.37 K/mm3 (0.84-5.20); LYMPHOCYTES PERCENT AUTO 3 % (21-46); MONOCYTES ABSOLUTE AUTO 1.44 K/mm3 (0.16-1.47); MONOCYTES PERCENT AUTO 11 % (4-13); Mean Corpuscular HGB 31.5 pg (26.0-34.0); Mean Corpuscular HGB Conc 34.9 g/dL (31.5-36.5); Mean Corpuscular Volume 90 fL (80-100); Mean Platelet Volume 11.6 fL (9.1-12.4); NEUTROPHILS ABSOLUTE AUTO 10.77 K/mm3 (1.96-9.15); NEUTROPHILS PERCENT AUTO 85 % (41-73); NRBC ABSOLUTE 0.02 K/mm3 (0.00-0.02); NRBC Auto 0.2 /100 WBC (0.0-0.2); Platelet Count 233 K/mm3 (150-400); RDW Coefficient Variation 14.3 % (11.7-14.2); Red Blood Cell Count 4.64 M/mm3 (4.30-5.90); White Blood Cell Count 12.69 K/mm3 (4.00-11.30)
[2019-07-30 16:16] LABS: Base Excess Venous -26.6 mmol/L; Bicarbonate Venous 8.4 mmol/L (24.0-30.0); PCO2 Venous 15.9 mmHg (38-42); PO2 Venous 164 mmHg (38-42); pH Blood Venous 7.03 (7.34-7.37)
[2019-07-30 17:08] LABS: Albumin, Blood 3.5 g/dL (3.4-5.0); Albumin/Globulin Ratio 0.9 (0.8-1.8); Beta-hydroxybutyrate 100.6 mg/dL (0.2-2.8); Bilirubin, Total 0.4 mg/dL (0.1-1.0); Bun/Creatinine Ratio 52.9 (12.0-20.0); Calcium, Blood 8.5 mg/dL (8.5-10.1); Creatinine, Blood 1.7 mg/dL (0.60-1.20); Globulin, Blood 3.7 g/dL (2.2-4.0); Potassium, Blood 3.8 mmol/L (3.5-5.5); Total Protein, Blood 7.2 g/dL (6.4-8.2)
[2019-07-30 17:36] LABS: Source, Urine Clean Catch
[2019-07-30 17:39] LABS: Bilirubin, Urine Neg (Neg); Blood, Urine 5+ (Neg); Glucose Qualitative, Urine 4+ (Neg); Ketones, Urine 4+ (Neg); Leukocyte Esterase, Urine Neg (Neg); Nitrite, Urine Neg (Neg); Protein, Urine 2+ (Neg); Specific Gravity, Urine 1.015 (1.003-1.022); Urobilinogen, Urine NORM (Normal)
--- NOTE | 2019-07-30 17:48 | NUR ---
PATIENT ARRIVED TO ICU 3 VIA STRETCHER FROM ER AFTER HAVING RECEIVED REPORT FROM ANTONIO TAN, PATIENT IS EXTREMELY CONNFUSED AND RESTLESS, PATIENT LIVES WITH DAUGHTER AND GRANDSON, WHO ARE AT BEDSIDE AND STATE THAT PATIENT BECAME MORE AND MORE CONFUSED AND REMOVED HIS INSULIN PUMP AND STARTED THROWING ALL OF HIS CLOTHES AND MEDS AROUND, AMMONIA SMELL IS OVERBEARING, PATIENT IS ON RA SATING AT 100 %, SR/ST WITH ECTOPY, PATIENT HAD A 6-BEAT RUN OF VTACH IN ER, THEN BRIEFLY WENT INTO A-FIB, AND FINALLY CONVERTED BACK TO SR, PATIENT HAS A HILL CATHETER IN PLACE, WITH GOOD URINE OUTPUT,PIV'S X 3, NS INFUSING WIDE OPEN, AFTER THE SECOND BAG OF NS WIDE OPEN, CONTINUE WITH NS AT 250 CC/HR, INSULIN DRIP INFUSING AT 11 UNITS, CHEMSTICKS ORDERED FOR EVERY [address] AUST[place], PATIENT IS AFEBRILE, DENIES PAIN, TRIED TO PULL ON LINES AND TUBES AND TRIED TO GET OOB, UNABLE TO FOLLOW COMMANDS, HISTORY OBTAINED FROM DAUGHTER, CALL LIGHT IN REACH, WILL CONTINUE TO MONITOR, AND GIVE REPORT TO ONCOMING NOC SHIFT.
[2019-07-30 17:50] LABS: Appearance, Urine Clear (Clear); Color, Urine Yellow (P-Yellow)
[2019-07-30 17:51] LABS: Bicarbonate Venous 8.1 mmol/L (24.0-30.0); PO2 Venous 71.5 mmHg (38-42)
[2019-07-30 17:52] LABS: White Blood Cells, Urine 0-2 /hpf (0-5)
[2019-07-30 17:53] LABS: Bacteria Mod /hpf; Mucus Light (0-Heavy); Red Blood Cells, Urine Not Seen /hpf (0-2); Squamous Epithelial Cells Few /hpf (Few)
[2019-07-30 17:54] LABS: Amorphous Light (0-Heavy)
[2019-07-30 18:13] LABS: Magnesium, Blood 3.1 mg/dL (1.6-2.4); Troponin I <0.015 ng/mL (0.000-0.040)
[2019-07-30 18:25] LABS: Bun/Creatinine Ratio 51.4 (12.0-20.0); Calcium, Blood 8.2 mg/dL (8.5-10.1); Creatinine, Blood 1.73 mg/dL (0.60-1.20); Phosphorus, Blood 4.6 mg/dL (2.5-4.9); Potassium, Blood 3.2 mmol/L (3.5-5.5)
[2019-07-30 18:48] LABS: Glucose, Blood 491 mg/dL (70-99)
[2019-07-30 19:39] LABS: U Amphetamine Screen Not Detected; U Barbituate Screen Not Detected; U Benzodiazapine Screen Not Detected; U Buprenorphine Screen Not Detected; U Cannabinoids Screen Not Detected; U Cocaine Screen Not Detected; U Methadone Screen Not Detected; U Methamphetamine Screen Not Detected; U Opiates Screen Not Detected; U Oxycodone Screen Not Detected; U Phencyclidine Screen Not Detected; U Propoxyphene Screen Not Detected
[2019-07-30 20:00] LABS: Base Excess Venous -22.5 mmol/L; Bicarbonate Venous 10.2 mmol/L (24.0-30.0); PCO2 Venous 19.1 mmHg (38-42); PO2 Venous 102 mmHg (38-42)
[2019-07-30 20:01] LABS: pH Blood Venous 7.13 (7.34-7.37)
[2019-07-30 20:16] LABS: Bun/Creatinine Ratio 53.5 (12.0-20.0); Calcium, Blood 7.9 mg/dL (8.5-10.1); Creatinine, Blood 1.57 mg/dL (0.60-1.20); Potassium, Blood 3.4 mmol/L (3.5-5.5)
--- NOTE | 2019-07-30 21:07 | NUR ---
ASSUMPTION OF CARE PATIENT LYING IN BED RESTING. RESTRAINT BILATERAL D/T HIM TUGGING ON LINES. HE IS CONFUSED AND WAS NOT SURE WHAT YEAR IT WAS. IS FORGETFUL FROM TIME TO TIME ABOUT WHY RESTRAINTS ARE ON HIM, WHAT IS GOING ON, ETC. INSULIN WAS RUNNING AT 11/HR. DROPPED TO 9/HR @ 1915 AND 6/HR @ 2100 D/T CONTINUALLY DECREASING GLUCOSE LEVELS. RUNNING 250ML/HR OF NS. POTASSIUM 10MEQ/HR - 50ML/HR RUNNING CONCURRENTLY W/NS. PT IS ABLE TO TOLERATE PO FLUIDS AND MEDICATIONS. VOIDING LARGE AMOUNTS OF CLEAR, YELLOW URINE. PATIENT IS CURRENTLY SLEEPING. WILL CONTINUE TO MONITOR. NIKOLAY GOMEZ
[2019-07-30 23:55] LABS: Base Excess Venous -15.9 mmol/L; Bicarbonate Venous 13.5 mmol/L (24.0-30.0); PCO2 Venous 29.5 mmHg (38-42); PO2 Venous 73.5 mmHg (38-42); pH Blood Venous 7.22 (7.34-7.37)
[2019-07-31 00:15] LABS: Bun/Creatinine Ratio 56.6 (12.0-20.0); Calcium, Blood 7.7 mg/dL (8.5-10.1); Creatinine, Blood 1.36 mg/dL (0.60-1.20); Potassium, Blood 3.1 mmol/L (3.5-5.5)
[2019-07-31 04:42] LABS: PCO2 Arterial 30.5 mmHg (35-45); PO2 Arterial 95.8 mmHg (80-100)
--- NOTE | 2019-07-31 05:49 | NUR ---
PATIENT HAS BEEN RESTING THROUGHOUT THE NIGHT. CAN ROUSE HIM FOR A MINUTE OR TWO BEFORE HE FALLS BACK ASLEEP. APPEARS LESS CONFUSED WHEN ANSWERING QUESTIONS. HAS ORDER FOR BILATERAL WRIST RESTRAINTS, HOWEVER HE HAS BEEN OUT OF RESTRAINTS FOR MOST OF SHIFT AND HAS TOLERATED WELL. PICTURES OF FOOT AND LEG WOUNDS TAKEN AND DOCUMENTED. HILL PATENT AND DRAINING. INSULIN GTT @ 5 UNITS PER HOUR. D5 1/2NS INFUSING @ 150ML/HR. TKO @ 10ML/HR. VBG PH HAS INCREASED TO 7.22 FROM 7.03 AT THE START OF SHIFT. ANION GAP FROM 20-14. BICARB HAS RISEN FROM 10 TO 16.4. POTASSIUM LEVELS HAVE FLUCTUATED DURING SHIFT, GOING DOWN TO 3.1. 60 MEQ OF KCL INFUSED DURING SHIFT. WILL CONTINUE TO MONITOR AND GIVE REPORT TO DAYSHIFT. NIKOLAY FONTENOT SN
[2019-07-31 05:53] LABS: BASOPHILS PERCENT AUTO 0 % (0-2); EOSINOPHILS PERCENT AUTO 0 % (0-6); Hematocrit 34.1 % (37.0-53.0); Hemoglobin 12.5 g/dL (13.5-17.5); IMMATURE GRAN ABSOLUTE AUTO 0.03 K/mm3 (0.00-0.10); IMMATURE GRAN PERCENT AUTO 0 % (0-1); LYMPHOCYTES ABSOLUTE AUTO 0.51 K/mm3 (0.84-5.20); LYMPHOCYTES PERCENT AUTO 5 % (21-46); MONOCYTES ABSOLUTE AUTO 1.22 K/mm3 (0.16-1.47); MONOCYTES PERCENT AUTO 13 % (4-13); Mean Corpuscular HGB 31.4 pg (26.0-34.0); Mean Corpuscular HGB Conc 36.7 g/dL (31.5-36.5); Mean Platelet Volume 10.8 fL (9.1-12.4); NEUTROPHILS ABSOLUTE AUTO 7.89 K/mm3 (1.96-9.15); NEUTROPHILS PERCENT AUTO 82 % (41-73); NRBC ABSOLUTE 0.02 K/mm3 (0.00-0.02); NRBC Auto 0.2 /100 WBC (0.0-0.2); Platelet Count 198 K/mm3 (150-400); RDW Coefficient Variation 14.1 % (11.7-14.2); RDW Standard Deviation 44.3 fL (35.1-46.3); Red Blood Cell Count 3.98 M/mm3 (4.30-5.90); White Blood Cell Count 9.65 K/mm3 (4.00-11.30)
[2019-07-31 05:54] LABS: Mean Corpuscular Volume 86 fL (80-100)
[2019-07-31 06:16] LABS: Anion Gap 9 mmol/L (6-16); Blood Urea Nitrogen 64 mg/dL (8-24); Bun/Creatinine Ratio 52.5 (12.0-20.0); CO2, Blood 17 mmol/L (21-32); Calcium, Blood 7.7 mg/dL (8.5-10.1); Chloride, Blood 117 mmol/L (98-108); Creatinine, Blood 1.22 mg/dL (0.60-1.20); Glomerular Filtration Rate >60 (60-); Glucose, Blood 188 mg/dL (70-99); Magnesium, Blood 2.5 mg/dL (1.6-2.4); Potassium, Blood 3.3 mmol/L (3.5-5.5); Sodium, Blood 143 mmol/L (136-145)
[2019-07-31 06:21] LABS: Beta-hydroxybutyrate 8.1 mg/dL (0.2-2.8)
[2019-07-31 06:29] LABS: Phosphorus, Blood 1.2 mg/dL (2.5-4.9)
--- NOTE | 2019-07-31 07:43 | NUR ---
ASSUMED CARE: REPORT RECEIVED FROM ROCIO Cruz RN & NIKOLAY Melendez, FRONT LOAD TRASH TRUCK DRIVER. ASSUMED CARE OF THIS PT AT APPROX 0700. ON ASSESSMENT, THE PT REMAINS CONFUSED BUT IS NO LONGER PULLING AT LINES/ TUBES. HE DOES NOT ANSWER QUESTIONS BUT IS COOPERATIVE W/ CARE. PT ON RA W/ O2 SATS > 92%. MONITOR SHOWS SR W/ HR 90s, LESS ECTOPY NOTED THIS AM. BP STABLE. NO GI COMPLAINTS, HILL PATENT/ DRAINING. WOUND TO R FOOT W/ DRESSING CDI. WILL CONTINUE TO MONITOR & UPDATE NEEDED.
--- NOTE | 2019-07-31 08:45 | NUR ---
DR JEAN / UPDATE: PROVIDER AT BEDSIDE TO SEE PT. WOULD LIKE THIS RN TO FIND OUT PT's HOME INSULIN DOSE SO THAT INSULIN DRIP MAY BE D/C'd. ONCE THIS IS COMPLETED & INSULIN DRIP D/C'd, THE PT MAY HAVE A DIET ORDERED & BE TRANSFERRED TO PCU STATUS. ATTEMPTED TO CALL PT's DAUGHTER, TACHO, TO SEE IF SHE CAN VERIFY PT's HOME INSULIN REGIMEN, NO ANSWER. WILL ATTEMPT TO CALL AGAIN. WILL CONTINUE TO MONITOR & UPDATE NEEDED.
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
[2019-07-31 13:03] LABS: Anion Gap 9 mmol/L (6-16); Blood Urea Nitrogen 52 mg/dL (8-24); Bun/Creatinine Ratio 48.1 (12.0-20.0); CO2, Blood 16 mmol/L (21-32); Calcium, Blood 7.9 mg/dL (8.5-10.1); Chloride, Blood 120 mmol/L (98-108); Creatinine, Blood 1.08 mg/dL (0.60-1.20); Glomerular Filtration Rate >60 (60-); Glucose, Blood 195 mg/dL (70-99); Potassium, Blood 3.5 mmol/L (3.5-5.5); Sodium, Blood 145 mmol/L (136-145)
--- NOTE | 2019-07-31 17:15 | NUR ---
DR JEAN: CALL TO PROVIDER TO NOTIFY HIM THAT PT's CBG CHECKS HAVE BEEN STABLE BETWEEN 150-210 ON 3 U/HR OF INSULIN W/ D5 1/2 NS @ 150 ML/HR. STS OKAY TO GIVE 20 UNITS LANTUS & ORDER PT AN ADA DIET. INSULIN DRIP MAY BE D/C'd 1 HR AFTER LANTUS ADMIN. HE WOULD LIKE THE PT's CBG TO BE SPOT-CHECKED AT 0300 THIS COMING AM (08/01/19) TO ENSURE THAT HE DOES NOT BECOME HYPOGLYCEMIC AFTER ADMIN OF LANTUS. WILL CONTINUE TO MONITOR & UPDATE NEEDED.
--- NOTE | 2019-07-31 17:45 | NUR ---
SHIFT SUMMARY: NO ACUTE CHANGES SINCE INITIAL ASSESSMENT. PT REMAINS MOSTLY SLEEPY BUT AWAKENS TO VERBAL STIMULUS & ANSWERS YES/NO QUESTIONS APPROPRIATELY. INSULIN DRIP TO BE D/C'd AT 1830. LS ARE CLEAR T/O, PT ON RA W/ O2 SATS > 92%. MONITOR SHOWS SR W/ HR 80-90s, LESS ECTOPY NOTED THAN ON PRIOR SHIFT, BP STABLE. PT HAS NO C/O NAUSEA, HILL CATH PATENT/ DRAINING URINE. WOUNDS REMAIN UNCHANGED. WILL CONTINUE TO MONITOR & REPORT OFF TO ONCOMING RN.
--- NOTE | 2019-07-31 20:28 | NUR ---
ASSUMED CARE OF PT, REPORT RCV'D FROM ANTONIO COCHRAN. PT ALERT TO SELF, FAMILY, ABLE TO STATE THAT IT IS "SUNDAY" AND THE " MONTH" BUT UNABLE TO RECALL WHERE HE WAS OR WHY HE WAS IN THE HOSPITAL. PT COOPERATIVE WITH CARE AND DENIES NEEDS AT THIS TIME. PT SITTING UP IN BED EATING HIS DINNER INDEPENDENTLY WITH MINIMAL DIFFICULTY. HILL PATENT AND DRAINING. VITAL SIGNS STABLE. SEE FULL SHIFT ASSESSMENT.
--- NOTE | 2019-08-01 02:00 | NUR ---
MATERIALS HANDLER CALLED TO [facility] FLOOR ROOM 333, PT C/O INCREASING OXYGEN NEEDS REQUIRING INCREASE FROM 2LNC TO 15L NRB. PT SKIN COOL AND MOTTLED BILATERALLY FROM ELBOW DOWN AND KNEES DOWN. PT REPORTING INCREASING ABDOMINAL/FLANK PAIN. PT TRANSFERRED TO ICU 4 AT 0115. CENTRAL LINE PLACED IN RIGHT FEMORAL ARTERY AND 500 ML FLUID BOLUS ORDERED FOLLOWED BY 1.5L MAINTANENCE FLUID @75 ML/HR. PT HAD INCONTINENT LOOSE BOWEL MOVEMENT DURING TRANSPORT. PT'S STOMACH APPEARS SEVERELY DISTENDED R>L, PT REPORTS INTENSE 7/10 PAIN WITH PALPATION AND WITH ANY TYPE OF MOVEMENT. PT TRANSPORTED TO IMAGING FOR ABD/PELVIC CT AND CHEST XRAY. CT SHOWS LOOSE STOOL IN COLON. SPOKE WITH DR. PETERSON REGARDING IMAGING RESULTS AND PT'S REPORT OF DIARRHEA FOR "SEVERAL WEEKS", SUGGESTED R/O C-DIFF WITH NEXT BM. PER DR. PETERSON WE WILL HOLD OFF ON TESTING FOR C-DIFF UNTIL PT BEGINS HAVING "PROFUSE DIARRHEA". PT REPORTS THAT HE HAS NOT HAD ANY BOWEL MOVEMENTS SINCE BEING ADMITTED TO THE HOSPITAL. PT CURRENTLY ON BIPAP 10/5, FIO2 40% WITH SATS IN THE MID 90'S. LUNG SOUNDS COARSE BILATERAL UPPER LOBES, DIM T/O. FAMILY UPDATED ON PT'S STATUS AND TRANSFER TO ICU.
[2019-08-01 04:03] LABS: Anion Gap 12 mmol/L (6-16); Blood Urea Nitrogen 37 mg/dL (8-24); Bun/Creatinine Ratio 34.9 (12.0-20.0); CO2, Blood 15 mmol/L (21-32); Calcium, Blood 8.3 mg/dL (8.5-10.1); Chloride, Blood 118 mmol/L (98-108); Creatinine, Blood 1.06 mg/dL (0.60-1.20); Glomerular Filtration Rate >60 (60-); Glucose, Blood 335 mg/dL (70-99); Magnesium, Blood 2.6 mg/dL (1.6-2.4); Potassium, Blood 3.6 mmol/L (3.5-5.5); Sodium, Blood 145 mmol/L (136-145)
--- NOTE | 2019-08-01 06:02 | NUR ---
SHIFT SUMMARY NO ACUTE CHANGES OVERNIGHT. PT'S VSS. CBG 335 THIS MORNING, WILL COVER WITH TIMOTHY PER EMAR. 2000 ML CLEAR URINARY OUTPUT OVERNIGHT. WILL REPORT TO DAYSHIFT NURSE.
--- NOTE | 2019-08-01 07:05 | NUR ---
ASSUMED CARE: RECEIVED REPORT FROM NOC RN. PT APPEARS TO BE SLEEPING UPON ENTERING ROOM. NO ACUTE DISTRESS NOTED AND PT IS NOTED TO BE HAVING EVEN CHEST RISE AND FALL AT THIS TIME. CALL LIGHT IN REACH. BED ALARM ON. WILL CONTINUE TO MONITOR AND ASSESS FURTHER.
--- NOTE | 2019-08-01 08:00 | NUR ---
MENTATION: PT is able to state he is in the hospital but is unable to state the city or the city he lives in. l eye lid is noted to be droopy compared to the right. Unable to feed self, having difficulty with holding utensils or cups. Jerking movements noted in bilateral upper extremities
--- NOTE | 2019-08-01 10:00 | NUR ---
CALL TO DAUGHTER: CALLED DAUGHTER ABOUT PT'S INSULIN PUMP. DAUGHTER STATES SHE HAS THE PTS INSULIN PUMP AND "THINKS" DR KAUFMAN THE PTS PCP IS THE ONE WHO MANAGES THE INSULIN PUMP SETTINGS. ALSO STATES DR CURIEL IS THE ONE MANAGING THE PATIENTS DIABETIC ULCER ON HIS R FOOT.
--- NOTE | 2019-08-01 12:27 | NUR ---
PHYSICAL AND OCUPATIONAL THERAPY: CURRENTLY PHYSICAL AND OCUPATIONAL THERAPY IS IN THE ROOM ASSISTING PT WITH MEAL AND ADLS. DAUGHTER WAS CALLED BY PHYSICAL THERAPY TO DETERMIN PT BASE LINE.
--- NOTE | 2019-08-01 15:32 | NUR ---
PATIENT TO THE FLOOR FROM ICU, VERY PLEASANT, APPROPRIATELY, STILL DOES NOT KNOW WHAT TOWN HE IS IN OR WHERE HE LIVES. IS APPROPRIATE AND KNOWS HE IS IN THE HOSPITAL. PATIENT WAS REPORTED TO BE A FEEDER IF HE WILL EAT. AWAITING CHANGES AT THIS TIME.
[2019-08-01 17:52] LABS: PCO2 Arterial 30.2 mmHg (35-45); PO2 Arterial 85.8 mmHg (80-100); pH Blood Arterial 7.41 (7.35-7.45)
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
[2019-08-02 05:56] LABS: Anion Gap 10 mmol/L (6-16); Blood Urea Nitrogen 24 mg/dL (8-24); Bun/Creatinine Ratio 26.3 (12.0-20.0); CO2, Blood 20 mmol/L (21-32); Calcium, Blood 8.7 mg/dL (8.5-10.1); Chloride, Blood 120 mmol/L (98-108); Creatinine, Blood 0.91 mg/dL (0.60-1.20); Glomerular Filtration Rate >60 (60-); Glucose, Blood 270 mg/dL (70-99); Potassium, Blood 3.2 mmol/L (3.5-5.5); Sodium, Blood 150 mmol/L (136-145)
--- NOTE | 2019-08-02 06:41 | NUR ---
SHIFT SUMMARY PATIENT ALERT AND PLEASANT DURING SHIFT ASSESSMENT. OTHER THAN THAT HE WAS SLEEPING, BUT RESPONDED WHEN ATTEMPTED TO BE ROUSED. HILL CATHETER PRODUCING CLEAR, YELLOW URINE. ALL THREE IV SITES ARE PATENT AND WERE FLUSHED. BED IN LOWEST POSITION WITH WHEELS LOCKED. CALL LIGHT WITHIN REACH. REPORT GIVEN TO ONCOMING RN.
--- NOTE | 2019-08-02 14:00 | NUR ---
SPOKE WITH DR. JEAN AND PATIENT WILL CONTINUE TO BE MONITORED. HE WANTS THE PATIENT TO HAVE THE 12 UNITS AND CHECKED AGAIN IN ONE HOUR.
--- NOTE | 2019-08-02 16:35 | NUR ---
PATIENT'S FAMILY IS VERY UNHAPPY WITH THE COMMUNICATION FROM THE ICU AND ER NURSES. REPEATS THAT SHE WAS "CALLED A RENE" FROM ER. SHE REPORTS THAT SHE SPOKE WITH THE ICU NURSE.
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
--- NOTE | 2019-08-03 03:33 | NUR ---
PHYSICIAN COMMUNICATION PATIENT'S INSULIN PUMP NEEDLE HAD COME OUT OF HIS STOMACH. CALLED SOUNDSCRIBER MECHANIC PHYSICIAN AT 2113 ON 08/02 TO NOTIFY OF THE SITUATION. DR PETERSON ORDERED FREQUENT BLOOD SUGAR CHECKS EVERY FOUR HOURS WITH A PRN NOVOLOG SLIDING SCALE EVERY FOUR HOURS.
--- NOTE | 2019-08-03 04:00 | NUR ---
SHIFT SUMMARY REMOVED FIELD START IV FROM PATIENT'S LEFT WRIST. OTHER TWO IVS PATENT AND FLUSHED. MEPILEX DRESSING CHANGED ON RIGHT FOOT. WHEN CHANGING HIS GOWN I NOTICED THAT HIS INSULIN PUMP HAD COME OUT OF HIS STOMACH. BLOOD SUGAR CHECK AND SLIDING SCALE INSULIN WERE ADJUSTED ACCORDINGLY BY THE SUBSTANCE ABUSE CLINICIAN PHYSICIAN. BED IN LOWEST POSITION WITH WHEELS LOCKED. CALL LIGHT WITHIN REACH. REPORT GIVEN TO ONCOMING RN.
[2019-08-03 05:01] LABS: BASOPHILS ABSOLUTE AUTO 0.01 K/mm3 (0.00-0.23); BASOPHILS PERCENT AUTO 0 % (0-2); EOSINOPHILS ABSOLUTE AUTO 0.15 K/mm3 (0.00-0.68); EOSINOPHILS PERCENT AUTO 2 % (0-6); Hematocrit 33.2 % (37.0-53.0); Hemoglobin 11.4 g/dL (13.5-17.5); IMMATURE GRAN ABSOLUTE AUTO 0.09 K/mm3 (0.00-0.10); IMMATURE GRAN PERCENT AUTO 1 % (0-1); LYMPHOCYTES ABSOLUTE AUTO 1.55 K/mm3 (0.84-5.20); LYMPHOCYTES PERCENT AUTO 19 % (21-46); MONOCYTES ABSOLUTE AUTO 0.72 K/mm3 (0.16-1.47); MONOCYTES PERCENT AUTO 9 % (4-13); Mean Corpuscular HGB 31.1 pg (26.0-34.0); Mean Corpuscular HGB Conc 34.3 g/dL (31.5-36.5); Mean Platelet Volume 10.9 fL (9.1-12.4); NEUTROPHILS ABSOLUTE AUTO 5.85 K/mm3 (1.96-9.15); NEUTROPHILS PERCENT AUTO 70 % (41-73); Platelet Count 161 K/mm3 (150-400); Red Blood Cell Count 3.66 M/mm3 (4.30-5.90); White Blood Cell Count 8.37 K/mm3 (4.00-11.30)
[2019-08-03 05:02] LABS: Mean Corpuscular Volume 91 fL (80-100)
[2019-08-03 05:24] LABS: Anion Gap 8 mmol/L (6-16); Blood Urea Nitrogen 22 mg/dL (8-24); Bun/Creatinine Ratio 27.8 (12.0-20.0); CO2, Blood 23 mmol/L (21-32); Calcium, Blood 8.2 mg/dL (8.5-10.1); Chloride, Blood 111 mmol/L (98-108); Creatinine, Blood 0.79 mg/dL (0.60-1.20); Glomerular Filtration Rate >60 (60-); Glucose, Blood 206 mg/dL (70-99); Potassium, Blood 3.1 mmol/L (3.5-5.5); Sodium, Blood 142 mmol/L (136-145)
--- NOTE | 2019-08-03 09:18 | NUR ---
FORGOT TO PLACE A SHIFT SUMMARY LAST NIGHT. PATIENT SPOKE WITH PALLIATIVE CARE LAST NIGHT AND DID DIVULGE SOME INFORMATION THAT MAKES US SUSPICIOUS FOR OTHER CONCERNS FOR THE PATIENT'S SAFETY AT HOME. THIS IS A BIG ISSUE AND NEEDS TO BE ADDRESSED. THERE WAS A SAP BODS DEVELOPER CONSULT WELL A SPIRITUAL CARE CONSULT PLACED YESTERDAY. PATIENT WAS GIVEN 37 UNITS OF INSULIN YESTERDAY OVER A 6 HOUR PERIOD. HIS BLOOD SUGARS ARE NOW MUCH MORE STABLE THIS MORNING. HIS MORNING BLOOD SUGAR WAS 157 WHICH WARRANTED 3 UNITS OF SLIDING SCALE PLUS HIS FIVE UNITS OF SCHEDULED INSULIN PER MEAL. WILL CONTINUE TO CHECK BLOOD SUGARS Q4. HE ALSO HAS Q4 PRN SLIDING SCALE INSULIN TO KEEP HI BLOOD SUGAR IN CHECK. THE PATIENT IS HAPPY WITH THE RESULT OF THIS. HIS INSULIN PUMP DID COME OFF LAST NIGHT, AND THE PATIENT STATES THAT CURRENTLY HE IS HAPPY WITH THE INSULIN REGIMEN THAT HE IS ON AND WOULD PREFER TO DO THIS UNTIL HE CAN MEET AGAIN WITH AN OUTPATIENT NURSE THAT CAN SET UP HIS PUMP TO BEST SUIT HIS NEEDS.
[2019-08-03] MEDS ORDERED: INSULANPEN SC (11:18)
[2019-08-03] MEDS ORDERED: Humalog100 UNIT/1 SC (11:18)
--- NOTE | 2019-08-03 14:45 | NUR ---
discharge summary no acute concerns at this time. patient is stable and comfortale. he is able to move around. he currently has a follow up appointment with dr. edwards in the morning, and his wound will be addressed. other than that, patient is pleasant. ivs removed. wheeled downstairs by judith.
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
== END 2019-08-03 14:32 | disposition home health service (06) | DRG 637 ==
LOC: ER 15:40 → MEDS 17:20 → ICUW 17:20 → ICUE 17:39 → MEDS 08-01 15:13
PROVIDERS: Emergency Medicine; Hospitalist; ADMIT Family Medicine
DX: E11.10 Type 2 diabetes mellitus with ketoacidosis without coma (principal); G92 Toxic encephalopathy; E87.1 Hypo-osmolality and hyponatremia; Z79.4 Long term (current) use of insulin; E11.43 Type 2 diabetes mellitus with diabetic autonomic (poly)neuropathy; E11.621 Type 2 diabetes mellitus with foot ulcer; L97.519 Non-pressure chronic ulcer of other part of right foot with unspecified severity; I10 Essential (primary) hypertension; E78.5 Hyperlipidemia, unspecified; Z96.41 Presence of insulin pump (external) (internal); Z85.51 Personal history of malignant neoplasm of bladder; I25.2 Old myocardial infarction; Z87.891 Personal history of nicotine dependence
CPT/HCPCS: 36415; 36600; 51702; 71046; 73630; 80047; 80048; 80053; 81001; 82010; 82803; 82947; 83036; 83690; 83735; 84100; 84484; 85014; 85025; 87086; 93005; 93010; 96360-59; 97116; 97162; 97164; 97166; 97530; 97535; 99285-25; J0690; J1650; J1815; J3480; J7030; J7042; J7050

== ENCOUNTER 2019-08-11 09:02 | Day surgery (SDC) | payer MEDICARE | END 2019-08-11 22:38 | disposition home or self-care (01) | LOC: WOUND 09:02 | DX: E11.621 Type 2 diabetes mellitus with foot ulcer (principal); E11.622 Type 2 diabetes mellitus with other skin ulcer; L97.811 Non-pressure chronic ulcer of other part of right lower leg limited to breakdown of skin; E11.42 Type 2 diabetes mellitus with diabetic polyneuropathy; E11.51 Type 2 diabetes mellitus with diabetic peripheral angiopathy without gangrene; I10 Essential (primary) hypertension; G47.33 Obstructive sleep apnea (adult) (pediatric); S90.822A Blister (nonthermal), left foot, initial encounter; Z88.5 Allergy status to narcotic agent; Z91.041 Radiographic dye allergy status; Z87.891 Personal history of nicotine dependence; Z79.4 Long term (current) use of insulin; Z79.899 Other long term (current) drug therapy | CPT/HCPCS: 87071; 87075; 87205; G0463 ==

== ENCOUNTER 2019-08-19 08:06 | Day surgery (SDC) | payer MEDICARE | END 2019-08-19 23:31 | disposition home or self-care (01) | LOC: WOUND 08:06 | DX: T87.89 Other complications of amputation stump (principal); T87.53 Necrosis of amputation stump, right lower extremity; E11.621 Type 2 diabetes mellitus with foot ulcer; L97.512 Non-pressure chronic ulcer of other part of right foot with fat layer exposed; L97.421 Non-pressure chronic ulcer of left heel and midfoot limited to breakdown of skin; E11.52 Type 2 diabetes mellitus with diabetic peripheral angiopathy with gangrene; I96 Gangrene, not elsewhere classified; I13.2 Hypertensive heart and chronic kidney disease with heart failure and with stage 5 chronic kidney disease, or end stage renal disease; E11.22 Type 2 diabetes mellitus with diabetic chronic kidney disease; N18.6 End stage renal disease; I50.9 Heart failure, unspecified; I25.10 Atherosclerotic heart disease of native coronary artery without angina pectoris; G47.33 Obstructive sleep apnea (adult) (pediatric); E11.36 Type 2 diabetes mellitus with diabetic cataract; H26.9 Unspecified cataract; E11.39 Type 2 diabetes mellitus with other diabetic ophthalmic complication; H40.9 Unspecified glaucoma; H42 Glaucoma in diseases classified elsewhere; G47.30 Sleep apnea, unspecified; E11.42 Type 2 diabetes mellitus with diabetic polyneuropathy; M19.90 Unspecified osteoarthritis, unspecified site; I25.2 Old myocardial infarction; M06.9 Rheumatoid arthritis, unspecified; Z79.82 Long term (current) use of aspirin; Z79.4 Long term (current) use of insulin; Z79.899 Other long term (current) drug therapy; Z88.5 Allergy status to narcotic agent; Z88.8 Allergy status to other drugs, medicaments and biological substances; Z91.041 Radiographic dye allergy status; Y83.5 Amputation of limb(s) as the cause of abnormal reaction of the patient, or of later complication, without mention of misadventure at the time of the procedure ==

== ENCOUNTER 2019-09-02 08:42 | Day surgery (SDC) | payer MEDICARE | END 2019-09-02 22:33 | disposition home or self-care (01) | LOC: WOUND 08:42 | DX: T87.53 Necrosis of amputation stump, right lower extremity (principal); E11.621 Type 2 diabetes mellitus with foot ulcer; L97.522 Non-pressure chronic ulcer of other part of left foot with fat layer exposed; E11.52 Type 2 diabetes mellitus with diabetic peripheral angiopathy with gangrene; I96 Gangrene, not elsewhere classified; I25.10 Atherosclerotic heart disease of native coronary artery without angina pectoris; G47.33 Obstructive sleep apnea (adult) (pediatric); E11.36 Type 2 diabetes mellitus with diabetic cataract; H26.9 Unspecified cataract; E11.39 Type 2 diabetes mellitus with other diabetic ophthalmic complication; H40.9 Unspecified glaucoma; H42 Glaucoma in diseases classified elsewhere; J32.9 Chronic sinusitis, unspecified; I13.2 Hypertensive heart and chronic kidney disease with heart failure and with stage 5 chronic kidney disease, or end stage renal disease; E11.22 Type 2 diabetes mellitus with diabetic chronic kidney disease; N18.6 End stage renal disease; I50.9 Heart failure, unspecified; M06.9 Rheumatoid arthritis, unspecified; M19.90 Unspecified osteoarthritis, unspecified site; E11.42 Type 2 diabetes mellitus with diabetic polyneuropathy; I25.2 Old myocardial infarction; G47.30 Sleep apnea, unspecified; Z89.421 Acquired absence of other right toe(s); Z88.5 Allergy status to narcotic agent; Z88.8 Allergy status to other drugs, medicaments and biological substances; Z91.041 Radiographic dye allergy status; Z79.4 Long term (current) use of insulin; Z79.899 Other long term (current) drug therapy; Y83.5 Amputation of limb(s) as the cause of abnormal reaction of the patient, or of later complication, without mention of misadventure at the time of the procedure ==

== ENCOUNTER 2019-09-10 12:27 | Emergency (ER) | payer MEDICARE ==
[~2019-09-10] VITALS: Ht 182.9 cm; Wt 74.8 kg
[2019-09-10 12:45] LABS: Calcium, Ionized (POC) 1.27 mmol/L (1.10-1.46); Chloride (POC) 109 mmol/L (98-108); Creatinine (POC) 3.8 mg/dL (0.8-1.3); Glucose (ISTAT POC) 599 mg/dL (70-99); Hemoglobin (POC) 13.9 g/dL (13.5-17.5); Potassium (POC) 2.8 mmol/L (3.5-5.5); Sodium (POC) 135 mmol/L (135-148); Total CO2 (POC) 8 mmol/L (21-32)
--- NOTE | 2019-09-10 16:06 | NUR ---
Present upon arrival and CPR. Prayed at bedside when Mr. Lagos . Waited for family's arrival. Provided gentle bereavement insurance counselor and prayer. Family appropriately tearful and appreciative of [facility] staff. Wayne selected for arrangments.
== END 2019-09-10 16:22 ==
LOC: ER 12:27
PROVIDERS: Emergency Medicine
DX: I46.9 Cardiac arrest, cause unspecified (principal); E11.42 Type 2 diabetes mellitus with diabetic polyneuropathy; I25.2 Old myocardial infarction; I10 Essential (primary) hypertension; E78.5 Hyperlipidemia, unspecified; Z88.5 Allergy status to narcotic agent; Z91.09 Other allergy status, other than to drugs and biological substances; Z88.8 Allergy status to other drugs, medicaments and biological substances; Z79.899 Other long term (current) drug therapy; Z79.4 Long term (current) use of insulin
CPT/HCPCS: 31720; 80047; 85014; 92950; 96374-59; 96375-59; 96376-59; 99285-25; J0282